=== PATIENT | female | born 1930 | race Caucasian/White ===

== ENCOUNTER 2017-05-28 10:58 | Inpatient (IN) | payer MEDICARE ==
[2017-05-28] VITALS (18 sets, daily range): BP systolic 32–117; BP diastolic 14–76
[~2017-05-28] VITALS: Ht 160 cm; Wt 43.1 kg
[2017-05-28 11:47] LABS: MEAN CORPUSCULAR HEMOGLOBIN 32.1 PG (27.0-31.0); MEAN CORPUSCULAR HGB CONC 29.3 G/DL (32.0-36.0); MEAN CORPUSCULAR VOLUME 110 FL (80-99); MEAN PLATELET VOLUME 11.5 FL (6.5-10.1); PLATELET COUNT 134 K/UL (150-450); RED BLOOD COUNT 3.37 M/UL (4.20-5.40); RED CELL DISTRIBUTION WIDTH 16.7 % (11.6-14.8); WHITE BLOOD COUNT 8.6 K/UL (4.8-10.8)
[2017-05-28 12:10] LABS: ALANINE AMINOTRANSFERASE 13 U/L (12-78); ALBUMIN/GLOBULIN RATIO 0.6 (1.0-2.7); ANION GAP 11 mmol/L (5-15); ASPARTATE AMINO TRANSFERASE 31 U/L (15-37); CALCIUM 9.2 MG/DL (8.5-10.1); CARBON DIOXIDE 30 MMOL/L (21-32); CHLORIDE 104 MMOL/L (98-107); CKMB 11.4 NG/ML (0.0-3.6); CREATININE 2.3 MG/DL (0.55-1.30); POTASSIUM 3.2 MMOL/L (3.5-5.1); SODIUM 145 MMOL/L (136-145); TOTAL PROTEIN 5.6 G/DL (6.4-8.2)
[2017-05-28 12:11] LABS: APPEARANCE,URINE SLIGHTLY CLOUDY; KETONES,URINE NEGATIVE (NEGATIVE); LEUKOCYTE ESTERASE ,URINE 3+ (NEGATIVE); NITRITE,URINE NEGATIVE (NEGATIVE); PH,URINE 5 (4.5-8.0); PROTEIN,URINE 3+ (NEGATIVE); UROBILINOGEN,URINE NORMAL MG/DL (0.0-1.0)
[2017-05-28 12:24] LABS: REFLEX LACTIC ACID YES OR NO YES
--- NOTE | 2017-05-28 12:27 | Diagnostic Imaging Report ---
Indication: Altered mental status Technique: Contiguous 5 mm thick transaxial imaging of the head obtained in a Siemens Sensation [address] scanner. Soft tissue and bone windows generated. Total Dose length Product (DLP): [address] Dose Index Volume (CTDIvol): 70.38, 0.15 mGy Comparison: none Findings: There is mild prominence of the ventricles, basal cisterns, and cerebral sulci consistent with atrophy. Mild, nonspecific, white matter hypoattenuation is noted throughout the brain consistent with chronic small vessel disease. There is no midline shift, edema, acute hemorrhage, mass effect, or abnormal extra-axial fluid collections. Bones and extra osseous soft tissues are unremarkable. There is partial visualization of posterior hardware in the upper cervical spine. Impression: No acute intracranial bleed, mass effect or edema. Mild atrophy of the brain. Nonspecific white matter hypoattenuation probably due to chronic small vessel disease. The CT scanner at [facility] is accredited by the [employer] and the scans are performed using dose optimization techniques as appropriate to a performed exam including Automatic Exposure control.
[2017-05-28 12:30] LABS: BACTERIA,URINE FEW /HPF; SQUAMOUS EPITHELIAL CELL,UR FEW /LPF (NONE/OCC); WBC,URINE 30-40 /HPF (0 - 2); YEAST,URINE MODERATE /HPF
--- NOTE | 2017-05-28 12:31 | Diagnostic Imaging Report ---
Indication: Dyspnea Comparison: None A single view chest radiograph was obtained. Findings: Pleural-based densities likely effusions noted bilaterally. There is pulmonary edema and cardiomegaly. Bones are osteopenic. Impression: Pulmonary edema and bilateral pleural effusions
[2017-05-28 12:40] LABS: ANISOCYTOSIS 1+; BAND NEUTROPHILS % (MANUAL) 13 % (0-8); BASOPHILS % (MANUAL) 0 % (0-2); EOSINOPHILS % (MANUAL) 0 % (0-3); HYPOCHROMASIA 2+; LYMPHOCYTES % (MANUAL) 8 % (20-45); MACROCYTES 1+; METAMYELOCYTES % 7 % (0-0); MYELOCYTES % 3 % (0-0); NEUTROPHILS % (MANUAL) 65 % (45-75); NUCLEATED RED BLOOD CELLS 1 /100 WBC; PLATELET ESTIMATE DECREASED; PLATELET MORPHOLOGY NORMAL; TOTAL CELLS COUNTED 100
[2017-05-28] MEDS ORDERED: Piperacillin/Tazobactam 3.375 GM in NS 110 ML IVPB ONE (13:00)
[2017-05-28] MEDS ORDERED: Sodium Chloride 500ML 500 ML IVPB ONE (13:00)
[2017-05-28] MEDS ORDERED: Azithromycin 500 MG in NS 275 ML IV ONE (13:00)
[2017-05-28] MEDS ORDERED: Zosyn 3.375gm inj ONE (13:20)
[2017-05-28] MEDS ORDERED: ROCALTROL0.5 MCG GT (13:32)
[2017-05-28] MEDS ORDERED: DULCOLAX10 MG RC (13:32)
[2017-05-28] MEDS ORDERED: DOCUSATE SODIU250 MG ORAL (13:32)
[2017-05-28] MEDS ORDERED: NEPHROVITE1 TAB GT (13:32)
[2017-05-28] MEDS ORDERED: PEPTO-BISM262 MG/15 GT (13:32)
[2017-05-28] MEDS ORDERED: ELIQUIS2.5 MG GT (13:32)
[2017-05-28] MEDS ORDERED: LEVOTHYROXINE50 MCG GT (13:32)
[2017-05-28] MEDS ORDERED: FOLIC ACID1 MG GT (13:32)
[2017-05-28 13:55] LABS: ABG PCO2 58.6 mmHg (35.0-45.0)
[2017-05-28 13:56] LABS: ABG ALLEN TEST POSITIVE; ABG BASE EXCESS -0.6
[2017-05-28] MEDS ORDERED: Azithromycin 500mg Inj IV ONE (13:59)
[2017-05-28] MEDS ORDERED: MIRTAZAPINE15 MG GT (14:51)
[2017-05-28] MEDS ORDERED: SENNA8.6 M2 GT (14:51)
[2017-05-28] MEDS ORDERED: VITAMIN B122500 MCG GT (14:51)
[2017-05-28] MEDS ORDERED: VITAMIN D400 INTLU GT (14:51)
[2017-05-28] MEDS ORDERED: THIAMINE HCL100 MG GT (14:51)
[2017-05-28] MEDS ORDERED: SORBITOL 70%30 ML GT (14:51)
[2017-05-28] MEDS ORDERED: NORCO 5-325 TA1 EAC1 GT (14:51)
[2017-05-28] MEDS ORDERED: ACETAMINOPHEN325 M1 ORAL (14:51)
[2017-05-28] MEDS ORDERED: ZEGERID 20 MG1 EAC1 ORAL (14:51)
--- NOTE | 2017-05-28 15:03 | Emergency Room Report ---
History of Present Illness General Chief Complaint: Altered Level of Consciousness Source: Patient, Medical Record Present Illness HPI 87-year-old female presents to ED for evaluation. Per EMS patient is more altered than baseline. Patient is hypoxic and hypotensive from the fci since this morning. Patient is unable to provide any additional history at this time. No other aggravating relieving factors. Denies any other associated symptoms Allergies: Coded Allergies: CIPROFLOXACIN (Verified Allergy, Unknown, 05/28/17) LIDOCAINE (Verified Allergy, Unknown, 05/28/17) Uncoded Allergies: NSAIDS (Allergy, Unknown, 05/28/17) Patient History Past Medical History: COPD Past Surgical History: none Pertinent Family History: none Social History: Denies: smoking, alcohol use, drug use Now: No Immunizations: UTD Reviewed Nursing Documentation: PMH: Agreed, PSxH: Agreed Nursing Documentation-PMH Past Medical History: No History, Except For Hx COPD: Yes Review of Systems All Other Systems: limited Physical Exam Vital Signs Date Time Temp Pulse Resp B/P (MAP) Pulse Ox O2 Delivery O2 Flow Rate FiO2 05/28/17 10:56 78 18 75/50 97 Non-Rebreather 05/28/17 11:05 86.0 15.0 05/28/17 14:48 100 Sp02 EP Interpretation: reviewed, normal General Appearance: cachetic, lethargic, thin Head: normocephalic Neck: full range of motion, supple/symm/no masses Respiratory: chest non-tender, crackles, speaking full sentences Cardiovascular #1: regular rate, rhythm, no edema Gastrointestinal: normal inspection Rectal: deferred Genitourinary: no CVA tenderness Musculoskeletal: normal inspection Neurologic: other - lethargic Psychiatric: other - lethargic Skin: normal inspection Lymphatic: normal inspection Procedures Critical Care Time Critical Care Time i. I feel this is a highly complex case requiring extensive working including EKG/Rhythm strip, Xray/CT/US, Blood/urine lab work, repeat exams while in ED, and administration of strong opiates/narcotics for pain control, admission to hospital or close patient follow up. Total time: 30 min bedside evaluation and treatment excludes procedures (EKG). Reason for critical care: hypoxic, hypotensive, elevated troponin, sepsis Possible complications: hypotension, hypertension, KS, shock, arrhythmias, metabolic acidosis, end organ damage, respiratory failure. Interventions: labs, IVFs, EKG, CXR. ABG. Abx. Course: patient presenting with AMS, hypoxic, hypotensive. ABG shows hypercapnia. CXR shows bilateral infiltrates. lactate > 6. trop > 0.05. BNP elevated. BP improving with IVFs. improving on BIPAP. Abx given. unstable for transfer to [facility] Consultations: nursing staff, EMS, family Performed by: Dr Mederos Tolerated well condition = critical j. because of unstable vital signs this patient had a condition that could potentially threaten life or limb. I feel this is a critical patient who required my full attention while patient was considered critical. Total Critical Care Time excluding procedures was greater than 35 minutes Medical Decision Making Diagnostic Impression: Primary Impression: Severe sepsis Additional Impressions: Pneumonia Qualified Codes: J18.9 - Pneumonia, unspecified organism CHF (congestive heart failure) Qualified Codes: I50.9 - Heart failure, unspecified Renal insufficiency Elevated troponin ER Course Hospital Course 87-year-old female presents to ED with altered mental status, hypoxic, hypotensive Differential diagnoses include: Pneumonia, UTI, sepsis, dehydration, KS/ unstable angina Clinical course Patient placed on stretcher. 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 After initial history and physical, I ordered labs, IV fluids, EKG, chest x-ray, blood cultures, UA. CT Head Labs - BUN/Cr elevated, no leukocytosis, troponins > 0.05, BNP > 12,000. lactate > 6 CXR - bilateral infiltrates CT Head unremarkable Abx given. ABG shows hypercapnia started on BiPAP. given 30 mL per KG fluid bolus Patient belongs to [facility] however isn't stable for transfer and will be admitted here Case discussed with Dr Fung and they agreed to admit patient to their service for further care and support I feel this is a highly complex case requiring extensive working including EKG/ Rhythm strip, Xray/CT/US, Blood/urine lab work, repeat exams while in ED, and administration of strong opiates/narcotics for pain control, admission to hospital or close patient follow up. Diagnosis -severe sepsis, pneumonia, CHF, renal insufficiency, elevate troponin Patient admitted to [facility] in critical condition Labs Test 05/28/17 11:11 05/28/17 12:30 05/28/17 12:38 White Blood Count 8.6 K/UL (4.8-10.8) Red Blood Count 3.37 M/UL (4.20-5.40) Hemoglobin 10.8 G/DL (12.0-16.0) Hematocrit 37.0 % (37.0-47.0) Mean Corpuscular Volume 110 FL (80-99) Mean Corpuscular Hemoglobin 32.1 PG (27.0-31.0) Mean Corpuscular Hemoglobin Concent 29.3 G/DL (32.0-36.0) Red Cell Distribution Width 16.7 % (11.6-14.8) Platelet Count 134 K/UL (150-450) Mean Platelet Volume 11.5 FL (6.5-10.1) Neutrophils (%) (Auto) % (45.0-75.0) Lymphocytes (%) (Auto) % (20.0-45.0) Monocytes (%) (Auto) % (1.0-10.0) Eosinophils (%) (Auto) % (0.0-3.0) Basophils (%) (Auto) % (0.0-2.0) Differential Total Cells Counted 100 Neutrophils % (Manual) 65 % (45-75) Lymphocytes % (Manual) 8 % (20-45) Monocytes % (Manual) 4 % (1-10) Eosinophils % (Manual) 0 % (0-3) Basophils % (Manual) 0 % (0-2) Metamyelocytes % 7 % (0-0) Myelocytes % 3 % (0-0) Band Neutrophils 13 % (0-8) Nucleated Red Blood Cells 1 /100 WBC Platelet Estimate Decreased Platelet Morphology Normal Hypochromasia 2+ Anisocytosis 1+ Macrocytosis 1+ Urine Color Yellow Urine Appearance Slightly cloudy Urine pH 5 (4.5-8.0) Urine Specific [place] 1.015 (1.005-1.035) Urine Protein 3+ (NEGATIVE) Urine Glucose (UA) Negative (NEGATIVE) Urine Ketones Negative (NEGATIVE) Urine Occult Blood 4+ (NEGATIVE) Urine Nitrite Negative (NEGATIVE) Urine Bilirubin Negative (NEGATIVE) Urine Urobilinogen Normal MG/DL (0.0-1.0) Urine Leukocyte Esterase 3+ (NEGATIVE) Urine RBC 5-10 /HPF (0 - 2) Urine WBC 30-40 /HPF (0 - 2) Urine Squamous Epithelial Cells Few /LPF (NONE/OCC) Urine Bacteria Few /HPF (NONE) Urine Yeast Moderate /HPF (NONE) Sodium Level 145 MMOL/L (136-145) Potassium Level 3.2 MMOL/L (3.5-5.1) Chloride Level 104 MMOL/L (98-107) Carbon Dioxide Level 30 MMOL/L (21-32) Anion Gap 11 mmol/L (5-15) Blood Urea Nitrogen 96 mg/dL (7-18) Creatinine 2.3 MG/DL (0.55-1.30) Estimat Glomerular Filtration Rate mL/min (>60) Glucose Level 85 MG/DL (74-106) Lactic Acid Level 6.30 mmol/L (0.66-2.22) 6.70 mmol/L (0.66-2.22) Calcium Level 9.2 MG/DL (8.5-10.1) Total Bilirubin 0.9 MG/DL (0.2-1.0) Aspartate Amino Transf (AST/SGOT) 31 U/L (15-37) Alanine Aminotransferase (ALT/SGPT) 13 U/L (12-78) Alkaline Phosphatase 89 U/L (46-116) Total Creatine Kinase 161 U/L (26-308) Creatine Kinase MB 11.4 NG/ML (0.0-3.6) Creatine Kinase MB Relative Index 7.0 Troponin I 0.059 ng/mL (0.000-0.056) Pro-B-Type Natriuretic Peptide 57690 pg/mL (0-125) Total Protein 5.6 G/DL (6.4-8.2) Albumin 2.2 G/DL (3.4-5.0) Globulin 3.4 g/dL Albumin/Globulin Ratio 0.6 (1.0-2.7) Arterial Blood pH 7.278 (7.350-7.450) Arterial Blood Partial Pressure CO2 58.6 mmHg (35.0-45.0) Arterial Blood Partial Pressure O2 21.1 mmHg (75.0-100.0) Arterial Blood HCO3 26.8 mmol/L (22.0-26.0) Arterial Blood Oxygen Saturation 23.2 % (92.0-98.0) Arterial Blood Base Excess -0.6 [place] Test Positive EKG Diagnostic Results Rate: normal Rhythm: other - aflutter ST Segments: no acute changes ASA given to the pt in ED: Yes Rhythm Strip Diag. Results EP Interpretation: yes Rhythm: no PVC's, no ectopy Chest X-Ray Diagnostic Results Chest X-Ray Diagnostic Results : Chest X-Ray Ordered: Yes # of Views/Limited/Complete: 1 View Indication: Shortness of Breath EP Interpretation: Yes Interpretation: no pneumothorax, no acute cardiopulmonary disease, other - bilateral infiltrate/effusion Impression: Other - pneumonia Electronically Signed by: Electronically signed by Javier Mederos MD CT/MRI/US Diagnostic Results CT/MRI/US Diagnostic Results : Imaging Test Ordered: cT head Impression no acute process Last Vital Signs Date Time Temp Pulse Resp B/P (MAP) Pulse Ox O2 Delivery O2 Flow Rate FiO2 05/28/17 14:48 86 19 95 Full Face 100 05/28/17 14:23 86.0 107/72 15.0 Status: improved Disposition: ADMITTED INPATIENT Condition: Critical Referrals: [facility] (PCP) JAVIER MEDEROS M.D. May 28, 2017 15:03
[2017-05-28] MEDS ORDERED: Levophed 4mg/4mL Inj IV ONE (15:31)
--- NOTE | 2017-05-28 15:40 | Emergency Room Report ---
History of Present Illness General Chief Complaint: Altered Level of Consciousness Source: Patient, Medical Record Present Illness Allergies: Coded Allergies: CIPROFLOXACIN (Verified Allergy, Unknown, 05/28/17) LIDOCAINE (Verified Allergy, Unknown, 05/28/17) Uncoded Allergies: NSAIDS (Allergy, Unknown, 05/28/17) Patient History Now: No Nursing Documentation-[facility] Past Medical History: No History, Except For Hx COPD: Yes Physical Exam Vital Signs Date Time Temp Pulse Resp B/P (MAP) Pulse Ox O2 Delivery O2 Flow Rate FiO2 05/28/17 10:56 78 18 75/50 97 Non-Rebreather 05/28/17 11:05 86.0 15.0 05/28/17 14:48 100 Procedures Central Line Central Line : Consent: Written Central Line Lumen: triple Maximal Sterile Barrier Tech: yes cap, yes mask, yes sterile gown, yes sterile gloves, yes large sterile sheet, yes hand hygiene, yes chlorhexidine prep Central Line Postion: femoral (R) Anesthesia: Lidocaine Complications: none Central Line Post Position: sutured, good blood return Attempts: One Patient Tolerated: Well Complications: None Intubation Intubation : Consent: Emergent Intubation Method: orotracheal Tube Size (cm): 7.0 Breath Sounds after Intubation: equal Intubation Complications: no complications Post Intubation Xray: Yes Attempts: One Patient Tolerated: Well Complications: None Medical Decision Making Diagnostic Impression: Primary Impression: Severe sepsis Additional Impressions: CHF (congestive heart failure) Qualified Codes: I50.9 - Heart failure, unspecified Renal insufficiency Elevated troponin Pneumonia Qualified Codes: J18.9 - Pneumonia, unspecified organism ER Course patient blood pressure dropping despite IVFs. central line placed and started on levophed patient became bradycardic, O2 saturations slowly dropping while on BIPAP I preemptively intubated patient using glidescope. patient will be upgraded to ICU. Dr Fung informed I discussed patients poor prognosis with family. they continue to want full treatment for the patient Last Vital Signs Date Time Temp Pulse Resp B/P (MAP) Pulse Ox O2 Delivery O2 Flow Rate FiO2 05/28/17 14:48 86 19 95 Full Face 100 05/28/17 14:23 86.0 107/72 15.0 Status: improved Disposition: ADMITTED INPATIENT Condition: Critical Referrals: [facility] (PCP) RAMSES HOLLINS M.D. May 28, 2017 15:40
[2017-05-28] MEDS ORDERED: Atropine Sulfate 0.4mg/ml inj ONE ×2 (16:17→16:21)
[2017-05-28] MEDS ORDERED: DOPamine 400mg/250ml 250 ML IV ONE (16:26)
[2017-05-28] MEDS ORDERED: DOBUTamine Inj 500 MG in NS 210 ML IV SCH (16:30)
[2017-05-28] MEDS ORDERED: Amiodarone 150mg/ml 3ml Amp ONE (17:21)
[2017-05-28] MEDS ORDERED: EPINEPHrine 1mg/1ml Amp ONE (17:21)
[2017-05-28] MEDS ORDERED: Sodium Bicarbonate 50ml Carp ONE (17:21)
[2017-05-28] MEDS ORDERED: Calcium Chloride 10% 10ml carpuject IVP ONE (17:21)
--- NOTE | 2017-05-28 17:37 | Emergency Room Report ---
History of Present Illness General Chief Complaint: Altered Level of Consciousness Source: Patient, Medical Record Present Illness Allergies: Coded Allergies: CIPROFLOXACIN (Verified Allergy, Unknown, 05/28/17) LIDOCAINE (Verified Allergy, Unknown, 05/28/17) Uncoded Allergies: NSAIDS (Allergy, Unknown, 05/28/17) Patient History Now: No Nursing Documentation-[facility] Past Medical History: No History, Except For Hx COPD: Yes Physical Exam Vital Signs Date Time Temp Pulse Resp B/P (MAP) Pulse Ox O2 Delivery O2 Flow Rate FiO2 05/28/17 10:56 78 18 75/50 97 Non-Rebreather 05/28/17 11:05 86.0 15.0 05/28/17 14:48 100 Procedures Cardioversion Cardioversion: Consent: Emergent Indication: Other - Vfib Type: Desynchonis Response: Other - vfib Attempts: Other - multiple Patient Tolerated: Poor - patient expires CPR/Code Blue CPR/Code Blue Narrative see code blue sheet Medical Decision Making Diagnostic Impression: Primary Impression: Severe sepsis Additional Impressions: CHF (congestive heart failure) Qualified Codes: I50.9 - Heart failure, unspecified Renal insufficiency Elevated troponin Pneumonia Qualified Codes: J18.9 - Pneumonia, unspecified organism ER Course Patient subsequently intubated with central line after blood pressure started dropping. Patient became more hypoxic despite on BiPAP. Patient on ventilator. On max dosages of dobutamine and levophed with blood pressure dropping Patient lost pulses. CPR started. Patient received multiple doses of epinephrine. Given calcium and bicarbonate. Patient then went into ventricular fibrillation. Shocked multiple times. Given amiodarone. Patient then went into asystole Poor prognosis discussed with family. They agreed to terminate resuscitative efforts. Patient expires Last Vital Signs Date Time Temp Pulse Resp B/P (MAP) Pulse Ox O2 Delivery O2 Flow Rate FiO2 05/28/17 15:59 58/42 05/28/17 14:48 86 19 95 Full Face 100 05/28/17 14:23 86.0 15.0 Status: worsened Disposition: Condition: Referrals: [facility] (PCP) RAMSES HOLLINS M.D. May 28, 2017 17:37
--- NOTE | 2017-05-29 01:30 | History and Physical Report ---
DATE OF ADMISSION: 05/28/2017 REASON FOR ADMISSION: Hypotension and respiratory failure. HISTORY OF PRESENT ILLNESS: The patient is an 87-year-old female who presents with altered mental status. The patient was seen and evaluated by the emergency room physician. She was given a fluid bolus and also, she was noted to be hypoxemic and placed on BiPAP. The patient has stable vital signs and now being admitted to the ICU. The patient's care was discussed and reviewed. The patient was placed on BiPAP. PAST MEDICAL HISTORY: COPD and chronic renal failure. Remainder of the history is difficult to obtain as the patient is unable. However, the patient does have history of CHF, history of prior pneumonia, history of psychosis, history of hypothyroidism and possible dementia. MEDICATIONS: Reviewed. ALLERGIES: Reviewed. SOCIAL HISTORY: The patient is a residential patient. PHYSICAL EXAMINATION: GENERAL: The patient is a well-developed female of advanced age. VITAL SIGNS: With noted hypotension. Latest blood pressure is 58/42, previous 107/72, saturation 95% on 100% FiO2, respiratory rate 19. HEENT: Negative. NECK: Supple. LUNGS: With scattered rhonchi. Reduced air entry. CARDIAC: Distant. Regular rate. ABDOMEN: Soft and nontender. EXTREMITIES: Mottled. LABORATORY AND DIAGNOSTIC DATA: Lab data reviewed. Platelets 134 and white blood cell count 8.6. Arterial blood gases is 7.27, 58, and 21. Chemistries noted BUN 96 and creatinine 2.3. Troponin 0.059. BNP is 12,587. X-ray with evidence of pneumonia versus pulmonary edema and bilateral pleural effusions. IMPRESSION: 1. Respiratory failure. 2. Hypotension. 3. Shock. 4. Possible pneumonia. 5. Chronic obstructive pulmonary disease. 6. Chronic renal failure. 7. Acute on chronic encephalopathy. 8. Hypothyroidism. RECOMMENDATION: The patient will need fluids versus pressors. We will obtain Cardiology evaluation. BiPAP management. Possible intubation. Code status to be addressed. Empiric antibiotics. Monitor medication management and hold all antihypertensives. Anticoagulation. Obtain duplex of the legs. Monitor clinically for change. Prognosis is guarded at present. Byron Fung M.D. DR: HEBERT JOB#: [id number] CC:
--- NOTE | 2017-05-30 10:33 | Discharge Summary ---
Discharge Summary Hospital Course Date of Admission May 28, 2017 at 13:48 Date of Discharge May 28, 2017 at 17:22 Admitting Diagnosis hypotension HPI Marilyn Nunez is a 87 year old female who was admitted on May 28, 2017 at 13: 48 for Hypotension Hospital Course [id number] Discharge Discharge Disposition Patient Discharge Diagnoses: Tere Covarrubias NP May 30, 2017 10:33
[2017-05-30 11:54] LABS: OTHERS PATHOLOGIST COMMENT
--- NOTE | 2017-05-30 23:47 | Discharge Summary 2 SIG ---
DATE OF ADMISSION: 05/28/2017 DATE OF DISCHARGE: 05/28/2017 SUMMARY: The patient is an 87-year-old female, who presented with altered mental status. The patient was hypoxemic and hypotensive from senior care. On evaluation at ED, blood pressure was 75/50. She was given IV fluids. Blood work showed elevated BUN and creatinine. Troponin was 0.059, BNP 12,587, and lactic acid was 6. Her ABG showed hypercapnia and she was placed on BiPAP. She was unstable for transfer. Chest x-ray showed bilateral infiltrate/effusion. CT of the head showed no acute process. She became bradycardic and O2 saturations dropped while on BiPAP. She was orally intubated and a triple lumen was placed to the right femoral and was started on Levophed. She was maxed on dobutamine and Levophed and lost pulses. CPR was started. She received multiple doses of epinephrine and was given calcium and bicarbonate. She went into ventricular fibrillation and was shocked multiple times. She was given amiodarone and the patient went continued on asystole. The patient eventually . FINAL DIAGNOSES: 1. Acute respiratory failure. 2. Shock. 3. Sepsis. 4. Congestive heart failure. 5. Possible pneumonia. 6. Chronic obstructive pulmonary disease. 7. Acute on chronic encephalopathy. 8. Hypothyroidism. 9. Chronic renal failure. Byron Fung M.D. I have been assigned to dictate discharge summary on this account and I was not involved in the patient's management. Tere Covarrubias N.P. DR: JOANNE JOB#: [id number] CC: DEB
== END 2017-05-28 17:22 | disposition expired | DRG 871 ==
LOC: EDBD 10:58 → EMR 11:35 → EDBEDREQ 13:48 → EDBEDREQSVC 13:48 → 2W 13:48 → EDBEDREQ 14:12 → EDBEDREQSVC 15:20 → EDBEDREQ 16:51 → ICU 16:58
PROC: 5A1935Z Respiratory Ventilation, Less than 24 Consecutive Hours (ICD-10-PCS; principal; 2017-05-28)
PROC: 0BH17EZ Insertion of Endotracheal Airway into Trachea, Via Natural or Artificial Opening (ICD-10-PCS; principal; 2017-05-28)
PROC: 06HM33Z Insertion of Infusion Device into Right Femoral Vein, Percutaneous Approach (ICD-10-PCS; principal; 2017-05-28)
DX: A41.9 Sepsis, unspecified organism (principal); J18.9 Pneumonia, unspecified organism; R57.9 Shock, unspecified; J96.01 Acute respiratory failure with hypoxia; G93.40 Encephalopathy, unspecified; J44.9 Chronic obstructive pulmonary disease, unspecified; F03.90 Unspecified dementia, unspecified severity, without behavioral disturbance, psychotic disturbance, mood disturbance, and anxiety; I50.9 Heart failure, unspecified; R65.20 Severe sepsis without septic shock; E03.9 Hypothyroidism, unspecified; N18.9 Chronic kidney disease, unspecified; Z78.1 Physical restraint status
CPT/HCPCS: 31500; 36415; 36600; 70450; 71010; 80053; 81003; 82550; 82553; 82803; 83605; 83880; 84484; 85007; 85025; 87040; 87086; 87181; 92950; 92960; 93005; 94002; 96360; 96361; 96365; 96366